=== PATIENT | female | born 1985 | race Hispanic/Latino ===

== ENCOUNTER 2017-11-09 21:41 | Emergency (ER) | payer BC ==
[2017-11-09 22:33] VITALS: BP 125/82; PULSE 89; RESP 20; TEMP 98.1; O2SAT 100
[2017-11-09] MEDS ORDERED: Bacitracin 500 Units/gm Oint Foilpak UD TOP STA (22:49)
[2017-11-09] MEDS ORDERED: Naproxen 500 MG TAB PO STA (22:49)
[2017-11-09] MEDS ORDERED: Tdap Vaccine 0.5 ml Vial (10-64 yrs) IM ONE ×2 (22:49→23:00)
[2017-11-09] MEDS ORDERED: Naproxen 500 MG TAB PO ONE (22:53)
--- NOTE | 2017-11-09 22:56 | ED PDOC ---
HPI: Trauma/Fall - HPI Time Seen by Provider: 11/09/17 22:31 Chief Complaint (Nursing): Upper Extremity Problem/Injury Chief Complaint (Provider): Elbow, Leg Pain History Per: Patient History/Exam Limitations: no limitations Onset/Duration Of Symptoms: Hrs (since 9pm tonight) Additional Complaint(s): Patient is a 32 year old female who presents to ED for evaluation of left elbow and left leg pain after falling down 6-10 stairs around 9pm. Patient reports that her friend was walking behind her on the stairs and slipped, kicking the patient causing her to lose her balance and fall down the stairs. Patient reports localized pain, an abrasion, and swelling to the left elbow, rated 8/10 and also notes discomfort to the upper aspect of her left lower leg. Patient did not take any medications prior to arrival and denies any head injury or LOC. No prior leg or elbow injury reported. No other complaints at this time. PMD: in [place] (patient is currently visiting and returns home tomorrow) LMP: Now Past Medical History Reviewed: Historical Data, Nursing Documentation, Vital Signs Vital Signs: Last Vital Signs Temp 98.1 F 11/09/17 22:31 Pulse 89 11/09/17 22:31 Resp 20 11/09/17 22:31 BP 125/82 11/09/17 22:31 Pulse Ox 100 11/09/17 22:31 - Medical History PMH: No Chronic Diseases - Surgical History Surgical History: No Surg Hx - Family History Family History: States: Unknown Family Hx - Social History Current smoker - smoking cessation education provided: No Alcohol: Social Drugs: Denies - Immunization History Hx Tetanus Toxoid Vaccination: No (Unknown) - Home Medications Home Medications: Ambulatory Orders Medication Instructions Recorded Naproxen 500 mg PO BID PRN #20 tab 11/09/17 - Allergies Allergies/Adverse Reactions: Allergies Allergy/AdvReac Type Severity Reaction Status Date / Time No Known Allergies Allergy Verified 11/09/17 22:30 Review of Systems ROS Statement: Except As Marked, All Systems Reviewed And Found Negative Musculoskeletal: Positive for: Leg Pain (left), Other (left elbow pain) Physical Exam - Reviewed Nursing Documentation Reviewed: Yes Vital Signs Reviewed: Yes - Physical Exam Appears: Positive for: Well, Non-toxic, No Acute Distress Head Exam: Positive for: ATRAUMATIC, NORMOCEPHALIC Skin: Positive for: Normal Color, Warm, Dry Eye Exam: Positive for: EOMI, PERRL ENT: Positive for: Other (Mucus membranes moist. Airway patent, (-) stridor.) Neck: Positive for: Painless ROM, Supple Cardiovascular/Chest: Positive for: Regular Rate, Rhythm Respiratory: Positive for: Normal Breath Sounds Gastrointestinal/Abdominal: Positive for: Soft. Negative for: Tenderness, Distended Back: Negative for: L CVA Tenderness, R CVA Tenderness, Vertebral Tenderness Extremity: Positive for: Other ((+) diffuse tenderness to left elbow with small effusion and faint ecchymosis (+) .5cm linear, superificial abrasion to dorsum L elbow (-) erythema (-) active bleeding. ROM intact with pain on flexion and supination. Remainder of left upper extremity nontender with FROM. Cap refill and sensation intact. Left lower leg: mild edema to lateral aspect of the proximal tib/fib with localized tenderness (-) erythema (-) ecchymosis (-) skin break. Knee, hip, and ankle with FROM, NV intact (+) distal pulses.). Negative for: Calf Tenderness Neurologic/Psych: Positive for: Alert, steel pourer helper II-XII (grossly intact), Oriented (x3 ), Mood/Affect (appropriate, cooperative), Cerebellar Tests (grossly intact), Gait (steady in ED). Negative for: Motor/Sensory Deficits, Aphasia, Facial Droop - ECG O2 Sat by Pulse Oximetry: 100 (RA) Pulse Ox Interpretation: Normal Medical Decision Making Medical Decision Makin Clinical Impression: acute leg and elbow pain, abrasion, contusion s/p fall Plan: -Adacel IM -Naproxen 500mg PO -L elbow XRs -L Tib/fib XRs -Topical Bacitracin -Re-evaluation 2310 Elbow abrasion irrigated with normal saline. Bacitracin and bandage applied. Educated on wound care. 2350 Elbow XR: (-) fracture (-) dislocation as read by Anny PA-C Tib/Fib XR: (-) fracture (-) dislocation as read by Anny PA-C Patient advised that official radiology read of XR is still pending and will call the patient if there is any discrepancy within 24 hours. On re-evaluation, patient reports improvement of symptoms. On exam, patient remains AAOx3, in no acute distress. Neck is supple, lungs CTA, cardiac RRR, abdomen is soft and non-tender, neuro exam shows no focal findings. VSS, stable for discharge. Diagnostic results d/w the patient in great detail. Dx of acute leg and elbow pain s/p fall, contusion, abrasion d/w the patient. Based on history, exam and diagnostic results plan will be for discharge and outpatient follow up. Advised to follow up with primary care physician in 1-2 days without fail. Advised to take medication as prescribed. Return to the emergency room at any time for any new or worsening symptoms. Patient states she fully agrees with and understands discharge instructions. States that she agrees with the plan and disposition. Verbalized and repeated discharge instructions and plan. I have given the patient opportunity to ask any additional questions. Disposition - Clinical Impression Clinical Impression: Abrasion, Elbow contusion, Contusion, lower leg, Fall on stairs - Patient ED Disposition Is Patient to be Admitted: No Counseled Patient/Family Regarding: Studies Performed, Diagnosis, Need For Followup, Rx Given - Disposition Disposition: Routine/Home Disposition Time: 23:51 Condition: STABLE Additional Instructions: FOLLOW UP WITH PMD UPON RETURN HOME TO [place] TOMORROW. RETURN TO ED WITH ANY NEW OR WORSENING SYMPTOMS. REST, ICE, AND ELEVATE. TAKE PRESCRIBED MEDICATION NEEDED FOR SYMPTOMS. Prescriptions: Naproxen 500 mg PO BID PRN #20 tab PRN Reason: Pain, Moderate (4-7) Instructions: Taking Care of Bruises, Skin Abrasions, Wound Care, Contusion (DC ), Elbow Sprain (DC) Forms: [facility] (Bolivian) Print Language: [place] - POA Present On Arrival: Falls Or Trauma
[2017-11-09] MEDS ORDERED: Bacitracin 500 Units/gm Oint Foilpak UD ONE (23:00)
--- NOTE | 2017-11-10 11:17 | RAD ---
PROCEDURE: Radiographs of the left elbow. HISTORY: S/P FALL, JOINT PAIN COMPARISON: No prior. FINDINGS: BONES: No acute fracture. JOINTS: Unremarkable. SOFT TISSUES: Normal. JOINT EFFUSION: None. OTHER FINDINGS: None IMPRESSION: No demonstrated fracture or dislocation.
--- NOTE | 2017-11-10 11:18 | RAD ---
PROCEDURE: Radiographs of the left tibia and fibula. HISTORY: s/p fall, pain and swelling to proximal tib/fib COMPARISON: None available. TECHNIQUE: Frontal and lateral views obtained. FINDINGS: BONES: No fracture or destructive lesion. JOINT SPACES: Unremarkable. OTHER FINDINGS: None. IMPRESSION: Unremarkable radiographs of the left tibia and fibula.
== END 2017-11-10 00:02 | disposition home or self-care (01) ==
LOC: H.ER 21:41
DX: S50.312A Abrasion of left elbow, initial encounter (principal); S50.02XA Contusion of left elbow, initial encounter; S80.12XA Contusion of left lower leg, initial encounter; W10.9XXA Fall (on) (from) unspecified stairs and steps, initial encounter